=== PATIENT | female | born 1995 | race Two or more races ===

== ENCOUNTER 2021-05-14 12:59 | Inpatient (IN) | payer OTHER ==
[~2021-05-14] VITALS: Ht 162.6 cm; Wt 61.9 kg
[2021-05-16 07:35] VITALS: BP 104/70
== END 2021-05-16 13:30 | disposition home or self-care (01) | DRG 811 ==
LOC: ED 15:40 → EDIP 15:42 → SUATTDRO 16:03 → ED 17:40 → 4NW 20:32
PROVIDERS: ADMIT Internal Medicine; ATTEND Internal Medicine
PROC: 30233N1 Transfusion of Nonautologous Red Blood Cells into Peripheral Vein, Percutaneous Approach (ICD-10-PCS; principal; 2021-05-14)
PROC: 0DB98ZX Excision of Duodenum, Via Natural or Artificial Opening Endoscopic, Diagnostic (ICD-10-PCS; 2021-05-15)
PROC: 0DB68ZX Excision of Stomach, Via Natural or Artificial Opening Endoscopic, Diagnostic (ICD-10-PCS; 2021-05-15)
PROC: 0DB28ZX Excision of Middle Esophagus, Via Natural or Artificial Opening Endoscopic, Diagnostic (ICD-10-PCS; 2021-05-15)
PROC: 0DB38ZX Excision of Lower Esophagus, Via Natural or Artificial Opening Endoscopic, Diagnostic (ICD-10-PCS; 2021-05-15)
PROC: 0DJD8ZZ Inspection of Lower Intestinal Tract, Via Natural or Artificial Opening Endoscopic (ICD-10-PCS; 2021-05-15)
DX: D50.0 Iron deficiency anemia secondary to blood loss (chronic) (principal); K21.01 Gastro-esophageal reflux disease with esophagitis, with bleeding; K64.0 First degree hemorrhoids; R73.03 Prediabetes; D53.9 Nutritional anemia, unspecified; Z22.7 Latent tuberculosis; Z79.899 Other long term (current) drug therapy